=== PATIENT | male | born 1995 | race Two or more races ===

== ENCOUNTER 2023-05-06 01:42 | Emergency (ER) | payer BC, MEDICAID ==
[~2023-05-06] VITALS: Ht 167.6 cm; Wt 61.0 kg
[2023-05-06] MEDS ORDERED: cefTRIAXone SOD 1,000 MG VL IM ONE (03:00)
[2023-05-06] MEDS ORDERED: AZITHROMYCIN 250 MG TAB PO ONE (03:00)
[2023-05-06 03:29] LABS: Urine Bacteria NONE SEEN /hpf (None Seen); Urine Blood Negative /uL (Negative); Urine Specific Gravity 1.024 (1.001-1.035); Urine WBC 33 /hpf (0 - 3)
[2023-05-06] MEDS ORDERED: DOXY-448 PO (03:40)
[2023-05-06 03:48] VITALS: BP 115/67
== END 2023-05-06 04:04 | disposition home or self-care (01) ==
LOC: ER 01:42
DX: R36.9 Urethral discharge, unspecified (principal); N39.0 Urinary tract infection, site not specified; A64 Unspecified sexually transmitted disease
CPT/HCPCS: 81001; 87491; 87591; 96372; 99283; J0696